=== PATIENT | female | born 1980 | race Caucasian/White ===

== ENCOUNTER 2021-05-09 21:10 | Emergency (ER) | payer MEDICAID ==
[~2021-05-09] VITALS: Ht 167.6 cm; Wt 60.0 kg
[2021-05-09] MEDS ORDERED: LIDOCAINE HCL/PF 1% 10 MG/ML 5ML VIAL INFIL ONE ×2 (22:30→22:45)
[2021-05-09] MEDS ORDERED: LORAZEPAM 2MG/ML CPJ IV ONE (22:30)
[2021-05-09] MEDS ORDERED: LIDOCAINE HCL 1% 20ML VIAL (Pyxis) INJ INFIL NR (22:38)
[2021-05-09] MEDS ORDERED: KETAMINE HCL 50 MG/ML 10ML IV ONE (22:45)
[2021-05-09] MEDS ORDERED: KETAMINE HCL 50 MG/ML 10ML IV NR (23:00)
[2021-05-09] MEDS ORDERED: PROPOFOL 200MG/20ML VIAL IV ONE (23:30)
[2021-05-09] MEDS ORDERED: TOPUD PO (23:39)
[2021-05-09] MEDS ORDERED: SODIUM CHLORIDE 0.9% 1,000 ML IV ONE (23:45)
[2021-05-10 01:15] VITALS: BP 114/67
== END 2021-05-10 01:27 | disposition home or self-care (01) ==
LOC: ER 21:10
DX: S43.015A Anterior dislocation of left humerus, initial encounter (principal); Z86.16 Personal history of COVID-19; X58.XXXA Exposure to other specified factors, initial encounter; Y93.89 Activity, other specified; Y92.018 Other place in single-family (private) house as the place of occurrence of the external cause
CPT/HCPCS: 23650; 73030; 96361; 96374; 99152; 99285; J2060; J2704; J3490; J7030; J7040; L3670